=== PATIENT | female | born 1990 | race Caucasian/White ===

== ENCOUNTER 2023-02-23 14:41 | Emergency (ER) | payer OTHER, SELFPAY ==
[2023-02-23 14:47] VITALS: BP 166/96; PULSE 120; RESP 18; TEMP 37.1; O2SAT 98; BMI 32.3
[2023-02-23] MEDS: 0.9 % SODIUM CHLORIDE 1000 ml 1,000 ML IV (15:17)
[2023-02-23 15:22] LABS: Appearance Urine Clear (Clear); Bilirubin Urine Negative (Negative); Blood Urine Negative (Negative); Color Urine Yellow (Yellow); Glucose Urine Negative (Negative); Ketones Urine Negative (Negative); Leukocyte Esterase Urine Negative (Negative); Nitrite Urine Negative (Negative); Protein Urine Negative (Negative); Specific Gravity Urine 1.015 (1.000-1.030); Urobilinogen Urine 0.2 (0.2-1.0); pH Urine 8.5 (5.0-8.5)
[2023-02-23 15:26] LABS: Lactate Sepsis w/Reflex* 1.2 mmol/L (0.5-1.9)
[2023-02-23 15:29] LABS: Basophils Percent Auto 0.3 % (0.0-3.0); Eosinophils Percent Auto 0.7 % (0.0-7.0); Hemoglobin* 14.3 gm/dL (12.0-16.0); Immature Granulocytes Pct Auto 0.2 %; Mean Corpuscular HGB Conc 33 gm/dL (32-36); Mean Corpuscular Hemoglobin 30 pg (26-34); Mean Corpuscular Volume 91 fL (80-100); Monocytes Percent Auto 6.4 % (0.0-11.0); Neutrophils Percent Auto 69.4 % (42.0-72.0); Platelet Count* 339 K/uL (140-440); RDW Coefficient of Variation % 11.6 % (11.5-15.5); Red Blood Count 4.75 m/uL (4.00-5.20); White Blood Count* 13.01 K/uL (4.50-11.00)
[2023-02-23 15:29] LABS: Ur HCG Qualitative* Negative (Negative)
[2023-02-23 15:33] LABS: Slide Review Reflex No
[2023-02-23 15:43] LABS: Albumin* 4.7 g/dL (3.3-5.0); Chloride* 101 mmol/L (96-114); Sodium* 138 mmol/L (135-149)
--- NOTE | 2023-02-23 15:43 | ED.GENADULT ---
HPI - General Adult General Date Seen: 02/23/23 Chief complaint: Abdominal Pain Stated complaint: Abdominal pain Time Seen by Provider: 02/23/23 14:50 Source: patient Mode of arrival: ambulatory Limitations: no limitations History of Present Illness HPI narrative: Patient is a 32-year-old woman generally healthy who presents for evaluation of some left-sided abdominal pain which has been present for couple days. She says yesterday she had a fever up to 100.5 although that is now resolved. She says pain is in the left upper quadrant although radiates to the left lower quadrant. She has not had any associated nausea or vomiting, no diarrhea or constipation, no black or bloody stools, denies urinary symptoms. Pain is not pleuritic, no shortness of breath or chest pain. No cough or upper respiratory symptoms. Has a history of a remote abnormal Pap smear followed up with a normal colposcopy, no other gynecologic history. She got a couple weeks ago, they are trying to get but she had a period a couple of weeks ago and does not suspect that she is likely . She denies any vaginal discharge or unusual bleeding. She has no history of ovarian cyst or other ovarian pathology. No abdominal surgeries. General health otherwise normal, does not smoke or drink. Related Data Home Medications Medication Instructions Recorded Confirmed No Known Home Medications 02/23/23 02/23/23 Allergies Allergy/AdvReac Type Severity Reaction Status Date / Time No Known Drug Allergies Allergy Verified 02/23/23 14:50 Review of Systems Status of ROS: Reports: 10 or more systems reviewed and unremarkable except as noted in History and below PFSH [facility] Social History Smoking Status: Never smoker Do you use any of these nicotine containing products: None How often do you have a drink containing alcohol: monthly or less AUDIT-C Alcohol total score: 1 Exam Narrative: Exam Narrative: Vital signs as noted above. In general, an alert, well-appearing patient. Looks comfortable, ambulatory without difficulty. Head: Normocephalic, atraumatic. Eyes: Pupils are equal reactive. Extraocular movements are full. Conjunctivae are normal. ENT: Mucous membranes are moist. Throat is normal. Neck: Supple without lymphadenopathy. Heart: Regular rate and rhythm. No murmur or rub. Lungs: Clear bilaterally. No increased work of breathing, crackles or wheezes. Abdomen: Abdomen is soft, non distended, bowel sounds present. She has some tenderness in the extreme left upper quadrant underneath the ribcage, she does not have any rebound guarding or rigidity, does not have any lower abdominal tenderness at this time. No CVA tenderness. Extremities: Well perfused. No edema. No calf tenderness. Pulses intact. Neurologic: Patient is alert and oriented to person and place. Speech is fluent. Face is symmetric. Moves all extremities equally. Affect: Normal. Skin: Warm and dry. Well perfused. Const: Vital Signs, click to edit/add: Vital Signs - 24 hr 02/23/23 14:47 02/23/23 17:18 Temperature 98.7 F 98.4 F Pulse Rate [Right Pulse Oximeter] 120 H 105 H Respiratory Rate 18 18 Blood Pressure [Ri ght Upper Arm] 166/96 H 139/91 H Pulse Oximetry 98 98 Oxygen Delivery Me thod Room Air Room Air Documenting provider has reviewed patient's vital signs: yes Course Course ED Course: Following initial evaluation, an IV was placed, she was given a L of normal saline with improvement in her tachycardia. Blood pressure came down a little as well to 139/91. Her labs are notable for an elevated white blood cell count of 13, normal hemoglobin, no significant left shift. Metabolic panel unremarkable, LFTs normal. Her CRP was also elevated at 5, lipase 39, UA negative, test negative. Given the elevated white blood cell count and CRP I recommended CT scanning. CT scan by my review showed some inflammatory changes along the descending colon, radiology read is as follows:FINDINGS: Lower chest: Bibasilar discoid atelectasis with trace left pleural fluid. Small hiatal hernia. Liver: Diffusely decreased density of the liver without focal lesion. Gallbladder and bile ducts: Unremarkable. No stones or inflammation. No biliary dilatation. Spleen: Unremarkable. Normal in size without mass. Pancreas: Unremarkable. No mass or inflammation. Adrenal glands: Unremarkable. No nodules. Kidneys: Unremarkable. No masses, stones, or hydronephrosis. Vasculature: Unremarkable. GI tract: Small hiatal hernia. No dilated loops of large or small intestine. Normal appendix. Colonic diverticulosis with focal inflammation adjacent to a proximal descending colon diverticulum. Trace free fluid along the left colonic gutter. Pelvis: Moderate bladder distention. Right ovarian cyst measuring 2.3 centimeters. Bones: Unremarkable for age. IMPRESSION: 1. Acute diverticulitis proximal descending colon without evidence of abscess. 2. Small hiatal hernia. Patient feels well at this time, continues to deny significant pain. She has a trace amount of fluid on her CT but no evidence of perforation, suspect this is inflammatory but I am going to cover her with antibiotics. Discussed if she has worsening, develops high fevers worsening abdominal pain, vomiting chills etcetera she should come back to the emergency department. Otherwise I have asked her to follow-up in primary care in the next week or 2 for recheck. Ibuprofen or Tylenol as needed for pain. Vital Signs Vital signs: Initial Vital Signs Temperature 98.7 F 02/23/23 14:47 Temperature Source Temporal Artery Scan 02/23/23 14:47 Pulse Rate 120 H 02/23/23 14:47 Respiratory Rate 18 02/23/23 14:47 Blood Pressure 166/96 H 02/23/23 14:47 Blood Pressure Mean 119 H 02/23/23 14:47 Blood Pressure Position Sitting 02/23/23 14:47 Pulse Oximetry 98 02/23/23 14:47 Oxygen Delivery Method Room Air 02/23/23 14:47 Vital Signs Temperature 98.7 F 02/23/23 14:47 Pulse Rate 120 H 02/23/23 14:47 Respiratory Rate 18 02/23/23 14:47 Blood Pressure 166/96 H 02/23/23 14:47 Pulse Oximetry 98 02/23/23 14:47 Oxygen Delivery Method Room Air 02/23/23 14:47 Temperature 98.4 F 02/23/23 17:18 Pulse Rate 105 H 02/23/23 17:18 Respiratory Rate 18 02/23/23 17:18 Blood Pressure 139/91 H 02/23/23 17:18 Pulse Oximetry 98 02/23/23 17:18 Oxygen Delivery Method Room Air 02/23/23 17:18 Medical Decision Making Lab Data Labs: Lab Results 02/23/23 02/23/23 02/23/23 Range/Units 14:55 15:16 15:16 WBC 13.01 H (4.50-11.00) K/uL RBC 4.75 (4.00-5.20) m/uL Hgb 14.3 (12.0-16.0) gm/dL Hct 43.0 (33.0-51.0) % MCV 91 (80-100) fL MCH 30 (26-34) pg MCHC 33 (32-36) gm/dL RDW Coeff of Demario 11.6 (11.5-15.5) % Plt Count 339 (140-440) K/uL Neut % (Auto) 69.4 (42.0-72.0) % Lymph % (Auto) 23.0 (20-44) % Parmer % (Auto) 6.4 (0.0-11.0) % Eos % (Auto) 0.7 (0.0-7.0) % Baso % (Auto) 0.3 (0.0-3.0) % Neut # (Auto) 9.00 H (1.7-7.0) K/uL Lymph # (Auto) 3.00 H (0.90-2.90) K/uL Parmer # (Auto) 0.80 (0.00-0.90) K/UL Eos # (Auto) 0.10 (0.00-0.50) K/uL Baso # (Auto) 0.00 (0.00-0.30) K/uL Abs Immat Gran (auto) 0.00 (0.00-0.30) K/uL Imm/Tot Granulo (auto) 0.2 % Sodium Cancelled 138 Potassium Cancelled Chloride Carbon Dioxide Anion Gap BUN Creatinine Estimated Creat Clear Estimated GFR Glucose Lactate (0.5-1.9) mmol/L Calcium Total Bilirubin (0.1-1.5) mg/dL Direct Bilirubin (0.0-0.5) mg/dL AST (12-35) U/L ALT (4-35) U/L Alkaline Phosphatase (40-150) U/L C-Reactive Protein Total Protein (6.0-8.3) g/dL Albumin (3.3-5.0) g/dL Lipase (23-300) U/L Urine Color Yellow (Yellow) Urine Appearance Clear (Clear) Urine pH 8.5 (5.0-8.5) Ur Specific Riparius 1.015 (1.000-1.030) Urine Protein Negative (Negative) Urine Glucose (UA) Negative (Negative) Urine Ketones Negative (Negative) Urine Blood Negative (Negative) Urine Nitrite Negative (Negative) Urine Bilirubin Negative (Negative) Urine Urobilinogen 0.2 (0.2-1.0) Ur Leukocyte Esterase Negative (Negative) Urine RBC 0-2 (0-2) Urine WBC 0-2 (0-5) Ur Squamous Epith Cells None (None-Few) Urine Bacteria Few A (None) Urine HCG, Qual Negative (Negative) 02/23/23 02/23/23 02/23/23 Range/Units 15:16 15:16 15:16 WBC (4.50-11.00) K/uL RBC (4.00-5.20) m/uL Hgb (12.0-16.0) gm/dL Hct (33.0-51.0) % MCV (80-100) fL MCH (26-34) pg MCHC (32-36) gm/dL RDW Coeff of Demario (11.5-15.5) % Plt Count (140-440) K/uL Neut % (Auto) (42.0-72.0) % Lymph % (Auto) (20-44) % Parmer % (Auto) (0.0-11.0) % Eos % (Auto) (0.0-7.0) % Baso % (Auto) (0.0-3.0) % Neut # (Auto) (1.7-7.0) K/uL Lymph # (Auto) (0.90-2.90) K/uL Parmer # (Auto) (0.00-0.90) K/UL Eos # (Auto) (0.00-0.50) K/uL Baso # (Auto) (0.00-0.30) K/uL Abs Immat Gran (auto) (0.00-0.30) K/uL Imm/Tot Granulo (auto) % Sodium Potassium 3.4 L Chloride Cancelled 101 Carbon Dioxide Cancelled 27 Anion Gap Cancelled BUN Creatinine Estimated Creat Clear Estimated GFR Glucose Lactate (0.5-1.9) mmol/L Calcium Total Bilirubin (0.1-1.5) mg/dL Direct Bilirubin (0.0-0.5) mg/dL AST (12-35) U/L ALT (4-35) U/L Alkaline Phosphatase (40-150) U/L C-Reactive Protein Total Protein (6.0-8.3) g/dL Albumin (3.3-5.0) g/dL Lipase (23-300) U/L Urine Color (Yellow) Urine Appearance (Clear) Urine pH (5.0-8.5) Ur Specific Riparius (1.000-1.030) Urine Protein (Negative) Urine Glucose (UA) (Negative) Urine Ketones (Negative) Urine Blood (Negative) Urine Nitrite (Negative) Urine Bilirubin (Negative) Urine Urobilinogen (0.2-1.0) Ur Leukocyte Esterase (Negative) Urine RBC (0-2) Urine WBC (0-5) Ur Squamous Epith Cells (None-Few) Urine Bacteria (None) Urine HCG, Qual (Negative) 02/23/23 02/23/23 02/23/23 Range/Units 15:16 15:16 15:16 WBC (4.50-11.00) K/uL RBC (4.00-5.20) m/uL Hgb (12.0-16.0) gm/dL Hct (33.0-51.0) % MCV (80-100) fL MCH (26-34) pg MCHC (32-36) gm/dL RDW Coeff of Demario (11.5-15.5) % Plt Count (140-440) K/uL Neut % (Auto) (42.0-72.0) % Lymph % (Auto) (20-44) % Parmer % (Auto) (0.0-11.0) % Eos % (Auto) (0.0-7.0) % Baso % (Auto) (0.0-3.0) % Neut # (Auto) (1.7-7.0) K/uL Lymph # (Auto) (0.90-2.90) K/uL Parmer # (Auto) (0.00-0.90) K/UL Eos # (Auto) (0.00-0.50) K/uL Baso # (Auto) (0.00-0.30) K/uL Abs Immat Gran (auto) (0.00-0.30) K/uL Imm/Tot Granulo (auto) % Sodium Potassium Chloride Carbon Dioxide Anion Gap 10 BUN Cancelled 5 Creatinine Cancelled 0.5 Estimated Creat Clear Cancelled Estimated GFR Glucose Lactate (0.5-1.9) mmol/L Calcium Total Bilirubin (0.1-1.5) mg/dL Direct Bilirubin (0.0-0.5) mg/dL AST (12-35) U/L ALT (4-35) U/L Alkaline Phosphatase (40-150) U/L C-Reactive Protein Total Protein (6.0-8.3) g/dL Albumin (3.3-5.0) g/dL Lipase (23-300) U/L Urine Color (Yellow) Urine Appearance (Clear) Urine pH (5.0-8.5) Ur Specific Riparius (1.000-1.030) Urine Protein (Negative) Urine Glucose (UA) (Negative) Urine Ketones (Negative) Urine Blood (Negative) Urine Nitrite (Negative) Urine Bilirubin (Negative) Urine Urobilinogen (0.2-1.0) Ur Leukocyte Esterase (Negative) Urine RBC (0-2) Urine WBC (0-5) Ur Squamous Epith Cells (None-Few) Urine Bacteria (None) Urine HCG, Qual (Negative) 02/23/23 02/23/23 02/23/23 Range/Units 15:16 15:16 15:16 WBC (4.50-11.00) K/uL RBC (4.00-5.20) m/uL Hgb (12.0-16.0) gm/dL Hct (33.0-51.0) % MCV (80-100) fL MCH (26-34) pg MCHC (32-36) gm/dL RDW Coeff of Demario (11.5-15.5) % Plt Count (140-440) K/uL Neut % (Auto) (42.0-72.0) % Lymph % (Auto) (20-44) % Parmer % (Auto) (0.0-11.0) % Eos % (Auto) (0.0-7.0) % Baso % (Auto) (0.0-3.0) % Neut # (Auto) (1.7-7.0) K/uL Lymph # (Auto) (0.90-2.90) K/uL Parmer # (Auto) (0.00-0.90) K/UL Eos # (Auto) (0.00-0.50) K/uL Baso # (Auto) (0.00-0.30) K/uL Abs Immat Gran (auto) (0.00-0.30) K/uL Imm/Tot Granulo (auto) % Sodium Potassium Chloride Carbon Dioxide Anion Gap BUN Creatinine Estimated Creat Clear 148.41 Estimated GFR Cancelled 126 Glucose Cancelled 111 Lactate 1.2 (0.5-1.9) mmol/L Calcium Cancelled Total Bilirubin (0.1-1.5) mg/dL Direct Bilirubin (0.0-0.5) mg/dL AST (12-35) U/L ALT (4-35) U/L Alkaline Phosphatase (40-150) U/L C-Reactive Protein Total Protein (6.0-8.3) g/dL Albumin (3.3-5.0) g/dL Lipase (23-300) U/L Urine Color (Yellow) Urine Appearance (Clear) Urine pH (5.0-8.5) Ur Specific Riparius (1.000-1.030) Urine Protein (Negative) Urine Glucose (UA) (Negative) Urine Ketones (Negative) Urine Blood (Negative) Urine Nitrite (Negative) Urine Bilirubin (Negative) Urine Urobilinogen (0.2-1.0) Ur Leukocyte Esterase (Negative) Urine RBC (0-2) Urine WBC (0-5) Ur Squamous Epith Cells (None-Few) Urine Bacteria (None) Urine HCG, Qual (Negative) 02/23/23 02/23/23 Range/Units 15:16 15:16 WBC (4.50-11.00) K/uL RBC (4.00-5.20) m/uL Hgb (12.0-16.0) gm/dL Hct (33.0-51.0) % MCV (80-100) fL MCH (26-34) pg MCHC (32-36) gm/dL RDW Coeff of Demario (11.5-15.5) % Plt Count (140-440) K/uL Neut % (Auto) (42.0-72.0) % Lymph % (Auto) (20-44) % Parmer % (Auto) (0.0-11.0) % Eos % (Auto) (0.0-7.0) % Baso % (Auto) (0.0-3.0) % Neut # (Auto) (1.7-7.0) K/uL Lymph # (Auto) (0.90-2.90) K/uL Parmer # (Auto) (0.00-0.90) K/UL Eos # (Auto) (0.00-0.50) K/uL Baso # (Auto) (0.00-0.30) K/uL Abs Immat Gran (auto) (0.00-0.30) K/uL Imm/Tot Granulo (auto) % Sodium Potassium Chloride Carbon Dioxide Anion Gap BUN Creatinine Estimated Creat Clear Estimated GFR Glucose Lactate (0.5-1.9) mmol/L Calcium 8.8 Total Bilirubin 0.7 (0.1-1.5) mg/dL Direct Bilirubin 0.0 (0.0-0.5) mg/dL AST 35 (12-35) U/L ALT 34 (4-35) U/L Alkaline Phosphatase 80 (40-150) U/L C-Reactive Protein Cancelled 5.0 H Total Protein 8.1 (6.0-8.3) g/dL Albumin 4.7 (3.3-5.0) g/dL Lipase 39 (23-300) U/L Urine Color (Yellow) Urine Appearance (Clear) Urine pH (5.0-8.5) Ur Specific Riparius (1.000-1.030) Urine Protein (Negative) Urine Glucose (UA) (Negative) Urine Ketones (Negative) Urine Blood (Negative) Urine Nitrite (Negative) Urine Bilirubin (Negative) Urine Urobilinogen (0.2-1.0) Ur Leukocyte Esterase (Negative) Urine RBC (0-2) Urine WBC (0-5) Ur Squamous Epith Cells (None-Few) Urine Bacteria (None) Urine HCG, Qual (Negative) Discharge Plan Discharge Clinical Impression: Diverticulitis Patient Disposition: Home, Self-Care Condition: Improved Instructions: Diverticulitis (DC) Additional Instructions: Antibiotics as prescribed. Ibuprofen and/or Tylenol as needed. For worsening pain, new symptoms such as fever, chills, vomiting, bloody stools or other significant changes return to the emergency department at any time. Otherwise please follow-up with primary care in the next 1-2 weeks for recheck. Prescriptions: No Action No Known Home Medications Follow Up/Referrals: Provider,Not a Local [Primary Care Provider] - Stand Alone Forms: [facility] Info Instructions
[2023-02-23 15:44] LABS: Potassium* 3.4 mmol/L (3.6-5.1)
[2023-02-23 15:46] LABS: Creatinine* 0.5 mg/dL (0.5-1.5); Est. Creatinine Clearance* 148.41; Estimated Glomerular Filt Rate 126 ml/min
[2023-02-23 15:47] LABS: RBC Urine 0-2 (0-2); WBC Urine 0-2 (0-5)
[2023-02-23 15:47] LABS: Alanine Aminotransferase* 34 U/L (4-35); Alkaline Phosphatase* 80 U/L (40-150); Anion Gap 10 mEq/L (7-15); Aspartate Amino Transferase* 35 U/L (12-35); Bilirubin Total* 0.7 mg/dL (0.1-1.5); Blood Urea Nitrogen* 5 mg/dL (5-24); Calcium* 8.8 mg/dL (8.4-10.6); Carbon Dioxide* 27 mmol/L (20-32); Glucose* 111 mg/dL (60-115); Lipase* 39 U/L (23-300); Total Protein* 8.1 g/dL (6.0-8.3)
[2023-02-23 15:48] LABS: Bacteria Urine Few
--- NOTE | 2023-02-23 16:25 | CRLHL7_ITS ---
For Patients: As a result of the Century Cures Act, medical imaging exams and procedure reports are released immediately into your electronic medical record. You may view this report before your referring provider. If you have questions, please contact your health care provider. INDICATION: Left abdominal pain and fever TECHNIQUE: Axial images were obtained from the diaphragm to the pubic symphysis. Reformats were obtained in the coronal and sagittal plane. IV Contrast: 100 cc Isovue 370 Oral Contrast: None COMPARISON: None. FINDINGS: Lower chest: Bibasilar discoid atelectasis with trace left pleural fluid. Small hiatal hernia. Liver: Diffusely decreased density of the liver without focal lesion. Gallbladder and bile ducts: Unremarkable. No stones or inflammation. No biliary dilatation. Spleen: Unremarkable. Normal in size without mass. Pancreas: Unremarkable. No mass or inflammation. Adrenal glands: Unremarkable. No nodules. Kidneys: Unremarkable. No masses, stones, or hydronephrosis. Vasculature: Unremarkable. GI tract: Small hiatal hernia. No dilated loops of large or small intestine. Normal appendix. Colonic diverticulosis with focal inflammation adjacent to a proximal descending colon diverticulum. Trace free fluid along the left colonic gutter. Pelvis: Moderate bladder distention. Right ovarian cyst measuring 2.3 centimeters. Bones: Unremarkable for age. IMPRESSION: 1. Acute diverticulitis proximal descending colon without evidence of abscess. 2. Small hiatal hernia. Please note that all CT scans at this facility use dose modulation, iterative reconstruction, and/or weight-based dosing when appropriate to reduce radiation dose to as low as reasonably achievable. Dictated by Byron Fields MD @ 02/23/2023 5:04:13 PM (Electronically Signed)
[2023-02-23 17:18] VITALS: BP 139/91; PULSE 105; RESP 18; TEMP 36.9; O2SAT 98
== END 2023-02-23 17:26 | disposition home or self-care (01) ==
PROVIDERS: Emergency Provider Emergency Medicine
DX: K57.92 Diverticulitis of intestine, part unspecified, without perforation or abscess without bleeding (principal)
CPT/HCPCS: 36415; 74177; 80048; 80076; 81001; 81025; 83605; 83690; 85025; 86140; 87086; 99283; 99284; J7030; Q9967

== ENCOUNTER 2024-03-23 16:13 | Outpatient (CLI) | payer OTHER, SELFPAY | END 2024-03-23 16:14 | disposition home or self-care (01) | LOC: NFLDREF 03-27 13:47 | PROVIDERS: Visit Provider Obstetrics & Gynecology | DX: Z31.9 Encounter for procreative management, unspecified (principal) | CPT/HCPCS: 82670; 83001; 83002; 84146; 84443 ==

== ENCOUNTER 2024-04-24 08:50 | Outpatient (CLI) | payer OTHER, SELFPAY ==
--- NOTE | 2024-04-24 09:15 | CRLHL7_ITS ---
For Patients: As a result of the Century Cures Act, medical imaging exams and procedure reports are released immediately into your electronic medical record. You may view this report before your referring provider. If you have questions, please contact your health care provider. Indication: Infertility Technique: Routine history of sonogram performed. Fluoroscopic time is 0.23 minutes. IMPRESSION: Normal endometrial canal without filling defect. Normal spillage of contrast into the peritoneal cavity through the patent fallopian tubes. Normal study. Dictated by Marco A Jain MD @ 04/24/2024 10:53:18 AM (Electronically Signed)
--- NOTE | 2024-04-24 09:48 | W.PM.GYNPROC ---
Procedure Note Time Seen by Provider: 09:48 Date of procedure: 04/24/24 Will [facility] bill your pro fee for this procedure?: Yes Procedure Description: DATE: 04/24/24 PREPROCEDURE DIAGNOSIS: Infertility POSTPROCEDURE DIAGNOSIS: 1. Infertility 2. Patent fallopian tubes bilaterally. NAME OF PROCEDURE: Hysterosalpingogram. ANESTHESIA: None. COMPLICATIONS: None. PROCEDURE: After obtaining verbal consent, the patient was placed in the dorsal lithotomy position on the x-ray table. An open-sided bivalve speculum was introduced into the vagina and the cervix easily visualized. The cervix and vagina were then prepped with Betadine. The anterior lip of the cervix was grasped with a single-tooth tenaculum for traction. Os binder/cervical dilator used: No. A balloon tipped double-lumen catheter was then gently inserted through the cervical opening into the uterine cavity to the level of the fundus. The balloon was insufflated with 3 mL of air. The tenaculum and speculum were removed. The patient was repositioned in the supine position, covered, and the radiologist was called to the room. A hysterosalpingogram was then performed. A total of 20 cc of Optiray 300 water soluble contrast dye was injected through the double-lumen catheter under moderate pressure. There was immediate fill of the uterine cavity to the cornua and immediate fill of both fallopian tubes and free spillage of dye on both sides The balloon was deflated. The catheter was removed. The patient tolerated the procedure well, though she did have moderate cramping discomfort during and just after the procedure. We discussed starting and alcohol cessation which she has been doing for the last two months. Additionally, her partner will need to submit a semen analysis. She was discharged to home in stable condition and make an appointment with her physician to review all of her lab results and procedure results.
== END 2024-04-24 08:51 | disposition home or self-care (01) ==
LOC: RAD 08:51
PROVIDERS: Visit Provider Obstetrics & Gynecology
DX: N97.9 Female infertility, unspecified (principal); Z31.9 Encounter for procreative management, unspecified
CPT/HCPCS: 58340; 74740; A4649; Q9967

== ENCOUNTER 2024-06-26 16:20 | Outpatient (CLI) | payer OTHER, SELFPAY | END 2024-06-26 16:21 | disposition home or self-care (01) | LOC: NFLDREF 07-02 09:28 | PROVIDERS: Visit Provider Obstetrics & Gynecology | DX: Z31.9 Encounter for procreative management, unspecified (principal) | CPT/HCPCS: 84144 ==

== ENCOUNTER 2024-08-04 07:05 | Outpatient (CLI) | payer OTHER, SELFPAY ==
--- NOTE | 2024-08-04 07:15 | CRLHL7_ITS ---
For Patients: As a result of the Century Cures Act, medical imaging exams and procedure reports are released immediately into your electronic medical record. You may view this report before your referring provider. If you have questions, please contact your health care provider. INDICATION: Check viability and dates TECHNIQUE: Transvaginal scanning was performed to better evaluate the IUP and adnexa. Ovarian blood flow was evaluated with color-flow doppler. COMPARISON: None FINDINGS: There is a living IUP with gestational age of 8 weeks 5 days by LMP and 8 weeks 2 days by today`s crown-rump length. EDC based on today`s crown-rump length is 03/14/2025. The embryonic heart rate is measured at 196 beats per minute. The placenta is not yet formed. A 1.5 x 1.0 x 0.8 cm subchorionic hemorrhage is noted. The ovaries are normal in size and shape. The right ovary measures 3.0 x 1.7 x 1.6 cm and the left 3.4 x 2.1 x 2.1 cm. Ovarian blood flow is demonstrated with color-flow and pulsed Doppler. No adnexal mass or free fluid is apparent. IMPRESSION: 1. Living IUP with gestational age of 8 weeks 2 days by today`s crown-rump length an EDC of 03/14/2025. 2. 1.5 x 1.0 x 0.8 cm subchorionic hemorrhage. Dictated by Medardo Connelly MD @ 08/05/2024 11:33:17 AM (Electronically Signed)
== END 2024-08-04 07:06 | disposition home or self-care (01) ==
LOC: US 07:06
PROVIDERS: Visit Provider Advanced Practice Midwife
DX: Z34.91 Encounter for supervision of normal pregnancy, unspecified, first trimester (principal); O20.9 Hemorrhage in early pregnancy, unspecified; Z3A.08 8 weeks gestation of pregnancy
CPT/HCPCS: 76817; 82565; 82570; 83021; 84156; 84450; 84460; 84520; 86592; 86703; 86704; 86706; 86762; 86787; 86803; 86850; 86900; 86901; 87086; 87340; 87491; 87591; 87624; 88142

== ENCOUNTER 2024-09-01 11:06 | Outpatient (CLI) | payer OTHER, SELFPAY | END 2024-09-01 11:07 | disposition home or self-care (01) | PROVIDERS: Visit Provider Advanced Practice Midwife | DX: Z34.01 Encounter for supervision of normal first pregnancy, first trimester (principal) | CPT/HCPCS: 82570; 84156 ==

== ENCOUNTER 2024-12-20 08:33 | Outpatient (CLI) | payer OTHER, SELFPAY | END 2024-12-20 08:34 | disposition home or self-care (01) | LOC: NFLDREF 12-24 14:39 | PROVIDERS: Visit Provider Advanced Practice Midwife | DX: O09.523 Supervision of elderly multigravida, third trimester (principal); Z3A.28 28 weeks gestation of pregnancy | CPT/HCPCS: 86592 ==

== ENCOUNTER 2025-01-03 11:33 | Outpatient (CLI) | payer OTHER, SELFPAY | END 2025-01-03 11:34 | disposition home or self-care (01) | PROVIDERS: Visit Provider Midwife | DX: O09.93 Supervision of high risk pregnancy, unspecified, third trimester (principal); O09.513 Supervision of elderly primigravida, third trimester; R03.0 Elevated blood-pressure reading, without diagnosis of hypertension; Z3A.30 30 weeks gestation of pregnancy | CPT/HCPCS: 82565; 82570; 84156; 84450; 84460; 84520; 84550; 87086 ==

== ENCOUNTER 2025-01-10 12:57 | Outpatient (CLI) | payer OTHER, SELFPAY | END 2025-01-10 12:58 | disposition home or self-care (01) | PROVIDERS: Visit Provider Advanced Practice Midwife | DX: O09.513 Supervision of elderly primigravida, third trimester (principal); O13.3 Gestational [pregnancy-induced] hypertension without significant proteinuria, third trimester; O09.93 Supervision of high risk pregnancy, unspecified, third trimester; Z3A.31 31 weeks gestation of pregnancy | CPT/HCPCS: 82565; 82570; 84156; 84450; 84460 ==

== ENCOUNTER 2025-01-19 07:15 | Outpatient (CLI) | payer OTHER, SELFPAY ==
--- NOTE | 2025-01-19 07:15 | CRLHL7_ITS ---
For Patients: As a result of the Century Cures Act, medical imaging exams and procedure reports are released immediately into your electronic medical record. You may view this report before your referring provider. If you have questions, please contact your health care provider. OB ULTRASOUND BIOPHYSICAL PROFILE, 01/19/2025 CLINICAL HISTORY: GHTN. COMPARISON: [facility] 12/13/2024, [facility] 11/15/2024, [facility] 10/24/2024. TECHNIQUE: Real time gaviria scale imaging of the fetus was performed. Transabdominal imaging performed. FINDINGS: LMP: 06/04/2024. KRISTINA by LMP: 03/11/2025. GA: 32 weeks 5 days. Gestation: Single. Cervix: Not visualized. Positioning: Vertex. Amniotic Fluid: 3.1 cm SDP. BIOPHYSICAL PROFILE Gross Body Movements: 2 Tone: 2 Respiratory Activity: 2 Amniotic Fluid SDP: 2 Total Score: 8 Placenta: TA. Placenta Position: Fundal, posterior. Dopplers: Heart Rate: 138 bpm. BIOMETRY BPD: ; 8.1 cm, 32 weeks 3 days. 34.8% HC: 30.6 cm, 34 weeks 0 days. 46.7% AC: 28.2 cm, 32 weeks 2 days. 36.3% FL: 6.1 cm, 31 weeks 4 days. 12.9% FL/AC Ratio: 21.6% HC/AC Ratio: 1.1. EFW: 1934 grams, 4 lb 4 oz. Age by tis US: 32 weeks 4 days. KRISTINA by this US: 03/12/2025. Percentile by KRISTINA: 26.4% IMPRESSION: 1. Normal biophysical profile score of 8/8. 2. Sonographic gestational age 32 weeks 4 days and sonographic due date 03/12/2025. Good correlation with dates. Normal interval growth. 3. Estimated weight 26th percentile. Abdominal circumference 36th percentile. Marco A Jain M.D. Diagnostic Radiologist [email or web address] Transcribed: 2:37 pm DW/Dictated by: Marco A Jain MD @ 01/19/2025 1:53:00 PM (Electronically Signed)
== END 2025-01-19 07:16 | disposition home or self-care (01) ==
LOC: US 07:15
PROVIDERS: Visit Provider Advanced Practice Midwife
DX: O13.3 Gestational [pregnancy-induced] hypertension without significant proteinuria, third trimester (principal); Z3A.32 32 weeks gestation of pregnancy
CPT/HCPCS: 76816; 76819

== ENCOUNTER 2025-01-19 08:05 | Outpatient (CLI) | payer OTHER, SELFPAY | END 2025-01-19 08:06 | disposition home or self-care (01) | LOC: NFLDREF 01-23 08:40 | PROVIDERS: Visit Provider Advanced Practice Midwife | DX: O13.9 Gestational [pregnancy-induced] hypertension without significant proteinuria, unspecified trimester (principal); Z3A.32 32 weeks gestation of pregnancy | CPT/HCPCS: 82565; 82570; 84156; 84450; 84460; 84520 ==

== ENCOUNTER 2025-02-02 13:37 | Outpatient (CLI) | payer OTHER, SELFPAY | END 2025-02-02 13:38 | disposition home or self-care (01) | LOC: NFLDREF 02-05 08:57 | PROVIDERS: Visit Provider Advanced Practice Midwife | DX: O10.913 Unspecified pre-existing hypertension complicating pregnancy, third trimester (principal); O09.523 Supervision of elderly multigravida, third trimester; Z3A.34 34 weeks gestation of pregnancy | CPT/HCPCS: 82565; 82570; 84156; 84450; 84460; 84520 ==

== ENCOUNTER 2025-02-09 15:21 | Outpatient (CLI) | payer OTHER, SELFPAY ==
[2025-02-10 14:53] LABS: Strep B DNA Probe Negative (Negative)
[2025-02-10 20:56] LABS: Strep B Susceptibility Needed? No
== END 2025-02-09 15:22 | disposition home or self-care (01) ==
LOC: NFLDREF 15:21
PROVIDERS: Visit Provider Advanced Practice Midwife
DX: O09.523 Supervision of elderly multigravida, third trimester (principal); Z3A.35 35 weeks gestation of pregnancy
CPT/HCPCS: 87081; 87653

== ENCOUNTER 2025-02-16 13:50 | Outpatient (CLI) | payer OTHER, SELFPAY | END 2025-02-16 13:51 | disposition home or self-care (01) | LOC: NFLDREF 02-19 18:32 | PROVIDERS: Visit Provider Advanced Practice Midwife | DX: O10.913 Unspecified pre-existing hypertension complicating pregnancy, third trimester (principal); O09.523 Supervision of elderly multigravida, third trimester; Z3A.36 36 weeks gestation of pregnancy | CPT/HCPCS: 82565; 82570; 84156; 84450; 84460; 84520 ==

== ENCOUNTER 2025-02-16 13:55 | Outpatient (CLI) | payer OTHER, SELFPAY ==
--- NOTE | 2025-02-16 14:00 | CRLHL7_ITS ---
For Patients: As a result of the Century Cures Act, medical imaging exams and procedure reports are released immediately into your electronic medical record. You may view this report before your referring provider. If you have questions, please contact your health care provider. OB ULTRASOUND BIOPHYSICAL PROFILE AND GROWTH, TRANSABDOMINAL LMP: 06/04/2024. KRISTINA by LMP: 03/11/2025. GA: 36 w, 5 d. Single. Comparison: 01/19/2025 BPP and growth. INDICATION: Chronic hypertension. TECHNIQUE: Real time gaviria scale imaging of the fetus was performed. Transabdominal imaging performed. CERVIX: Not visualized. POSITIONING: Vertex. AMNIOTIC FLUID: 4.5 cm SDP (N: greater than 2 x 1 cm) BIOPHYSICAL PROFILE: Gross body movements: 2. tone: 2. Respiratory activity: 2. Amniotic fluid: 2. SDP (N: greater than 2 x 1 cm). Total score: 8. PLACENTA: Technique: Transabdominal. PLACENTA POSITION: Fundal, posterior. DOPPLER: heart rate: 147 bpm. BIOMETRY: BPD: 8.96 cm. 36 w, 2 d, 50.8 percent. HC: 33.06 cm. 37 w, 5 d, 45.1 percent. AC: 32.43 cm. 36 w, 2 d, 52.1 percent. FL: 6.90 cm. 35 w, 3 d, 17.2 percent. FL/AC ratio: 21.28 percent. HC/AC ratio: 1.02. EFW: 2886 g. Weight: 6 lbs, 6 oz. age by this US: 36 w, 3 d. KRISTINA by this US: 03/13/2025. Percentile by KRISTINA: 41.5 percent. IMPRESSION: 1. Sonographic gestational age 36 weeks 3 days and sonographic due date 03/13/2025. Could correlate with dates. Normal interval growth. 2. Estimated weight 42nd percentile. Abdominal circumference 52nd percentile. 3. Normal biophysical profile 12/15. Marco A Jain M.D. Diagnostic Radiologist [email or web address] SP/Dictated by: Marco A Jain MD @ 02/16/2025 4:37:00 PM (Electronically Signed)
== END 2025-02-16 13:56 | disposition home or self-care (01) ==
LOC: US 13:56
PROVIDERS: Visit Provider Advanced Practice Midwife
DX: O10.913 Unspecified pre-existing hypertension complicating pregnancy, third trimester (principal); Z3A.36 36 weeks gestation of pregnancy
CPT/HCPCS: 76816; 76819

== ENCOUNTER 2025-03-04 16:02 | Inpatient (IN) | payer OTHER, SELFPAY ==
[2025-03-04] VITALS (8 sets, daily range): BP systolic 100–128; BP diastolic 57–88; PULSE 71–125; RESP 16; TEMP 36.4; O2SAT 98; BMI 34.9
--- NOTE | 2025-03-04 17:19 | W.PM.LDBA ---
Subjective History of Present Illness Date Seen: 03/04/25 Narrative: Jessee is being admitted to Labor and Delivery for a medical IOL for chronic hypertension and AMA. She is a 34 year old at 39.0 weeks gestation. Her full history and physical was dictated by Lewis Tyler CNM on 02/16/25. Please see this for details. we reviewed option for IOL including cook catheter, Cytotec, Cervidil, and Pitocin. Reviewed that a Cook placement would be difficult and may nt be able to place given her dilation and cervical position. She has had some contractions over the past week but nothing regular and none today. Reviewed risks and benefits of Cytotec and Cervidil. She would like to proceed with PO Cytotec at this time. Vertex presentation confirmed by bedside ultrasound. Specific Issues/Plans : Curtis Yoder is a girl! H&P 02/16/25 by Lewis Tyler CNM # Chronic HTN Suspected chronic hypertension. Asked OB to review chart with group for diagnosis clarification 01/10/25. They recommend Chronic HTN as dx History of elevated BP without diagnosis hypertension, prior to (01/2024) AND 01/03/25; (BP from 12/20/24 assumed erroneous) No work-up for HTN, Normal BP at [facility] Preeclampsia labs collected (08/04/24) WNL, p/c rato 0.21; 24 hour urine 448 08/2024 p/c ratio 0.3, on 24h urine 01/03/2025 p/c ratio .86, AST37, otherwise normal. 01/10/25 p/c ratio 0.30 p/c ratio 0.04, others all WNL Consult Nephrology appt - completed Home BP monitoring STAT Weekly Labs, pt prefers to continue every other week labs with dx change Twice weekly testing-scheduled- changed to every other week with dx change (GHTN vs CHTN), scheduled Growth Q 3wks. 32wks: 26% Delivery recommended at 38 0/7-39 6/7weeks? [place]: 01/19/2025 # Advanced maternal age Level II 20wk anatomy scan-completed 10/24/24, normal findings but a couple of views suboptimal. Repeat in 3w scheduled. Recommend genetic screening: NIPT low risk female, carrier screen negative Imagin08/05/2024 Living IUP with gestational age of 8 weeks 2 days by today`s crown-rump length an EDC of 03/14/2025. 2. 1.5 x 1.0 x 0.8 cm subchorionic hemorrhage. 10/25/24 [place] at 20w2d gestation. No anomalies detected however some views suboptimal. Growth parameters and EFW consistent with gestational age. Amniotic fluid appears normal. Cervix long and closed. 11/22/24 [place] at 23w 3 d gestation. The remaining anatomic survey completed and no anomalies were identified. Growth parameters and EFW were appropriate for gestational age. EFW 17%. Adequate interval growth albeit at the lower end of normal. The amniotic fluid appeared normal. 12/13/24: [place] at 28w 3d gestation. Normal anatomy. Growth appropriate EFW 29%. Amniotic fluid normal. Recommend growth ultrasounds every 4 weeks based on previous ultrasound. 01/19/25: Normal biophysical profile score of 8/8. Sonographic gestational age 32 weeks 4 days and sonographic due date 03/12/2025. Good correlation with dates. Normal interval growth. Estimated weight 26th percentile. Abdominal circumference 36th percentile. Last PAP: 08/04/24 NIL, HPV- (waiting on records--only ones received from [facility] was for 05/29/2015-NILM) Flu: declined 02/16/2025 Covid: declined 02/16/2025 TDAP:01/10/25 RSV: 01/26/25 OB - Problem Based A/P Additional Plan (1) Encounter for induction of labor: Status: Acute (2) Chronic hypertension affecting : Status: Acute (3) Supervision of high-risk : Status: Acute (4) AMA (advanced maternal age) primigravida 35+: Status: Acute Plan ASSESSMENT:? at 39.0 weeks gestation? GBS negative? ?complicated by: chronic hypertension, AMA Labor type: Medical IOL? Category 1 tracing Blood type:?O+ ?? PLAN:? 1. Reviewed risks and benefits of IOL with Pitocin vs cervical ripening, will proceed with ripening. Reviewed risks and benefits of Cytotec vs Cook vs Cervidil. Pt prefers PO Cytotec. Pitocin to follow if needed.? 2. Candidate for analgesia of choice. Planning epidural.? 3. Monitor blood pressures per policy. Consider labs with elevated readings.? 4. Anticipate ? 5. Patient encouraged to reposition and ambulate to promote physiologic labor and . 6. Monitoring per policy. Delivery/Labor/Induction Plan Plan: induction Induction method: per misoprostol protocol OB Result Labs Blood Type: O (+) positive Rubella: immune RPR/VDLR: nonreactive GBS Status: negative HBsAG: negative OB Exam Physical Exam Vital signs: Pulse BP Pulse Ox 125 H 128/88 98 03/04/25 16:18 03/04/25 16:18 03/04/25 16:19 Narrative: Psychiatric:? Alert and oriented x3? HEENT:? Normocephalic, atraumatic? Neck:? Supple without adenopathy or thyromegaly? Lungs:? Clear to auscultation bilaterally? Heart:? Regular rate and rhythm, no murmur, rub or gallop? Abdomen:? Soft, nontender, and gravid? Extremities:? No edema or erythema? Detailed Labor and Delivery Exam Patient Gravid: yes Dilation (cm): 0 (0.5cm) Cervix position: posterior Consistency: medium Contraction Frequency: rare, pt denies feeling them Tachysystole: No Fetus (Single) Amniotic Membrane Status: intact Amniotic Membrane Fluid Description: Clear Heart Rate Baseline: 135 Monitor Accelerations: Present Monitor Decelerations: None Fci Variability: Moderate (6-25) (short periods of marked variably on initial tracing)
[2025-03-04 18:46] LABS: Hematocrit* 37.8 % (33.0-51.0); Hemoglobin* 12.8 gm/dL (12.0-16.0); Immature Granulocytes Pct Auto 0.3 %; Mean Corpuscular HGB Conc 34 gm/dL (32-36); Mean Corpuscular Hemoglobin 29 pg (26-34); Mean Corpuscular Volume 86 fL (80-100); RDW Coefficient of Variation % 12.6 % (11.5-15.5); Red Blood Count* 4.40 m/uL (4.00-5.20); White Blood Count* 14.42 K/uL (4.50-11.00)
[2025-03-04 18:50] LABS: Immature Granulocytes Abs Auto 0.00 K/uL (0.00-0.30); Lymphocytes Absolute Auto 2.20 K/uL (0.90-2.90); Slide Review Reflex No
[2025-03-05] VITALS (99 sets, daily range): BP systolic 92–159; BP diastolic 55–95; PULSE 67–137; RESP 16–20; TEMP 36.5–37.3; O2SAT 90–100
[2025-03-05] MEDS: BUPIVACAINE 0.25% PF 10 ML 10 ML ML EPIDURAL (04:00)
[2025-03-05] MEDS: ROPIVACAINE 0.2% 100 ml 100 ML 12 MG EPIDURAL ×2 (04:00→10:56)
[2025-03-05] MEDS: LACTATED RINGERS 1000 ML 1,000 ML 125 ML IV (04:18)
--- NOTE | 2025-03-05 04:19 | PM.ANBPRC ---
PFSH PFSH Surgical History [place] teeth removed ?K08.409 - Partial loss of teeth, unspecified cause, unspecified class (ICD-10) Family History Father Myocardial infarction Maternal Grandmother Colon cancer Stroke Social History Narrative: SOCIAL??? 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 Partner: , Curtis?? Lives with: Together Pets: 2 dogs Abuse: Unable to assess, present Special Diet: Denies Ok with a blood transfusion: yes? Culture or anabaptist beliefs: denies ?? RISK FACTORS??? Exercise Times/wk: 1-2 times per week, walking Hx of Depression and/or Anxiety/other mood disorder: Anxiety, managed without medication, states no concerns at this time?? Seat Belt Use: Routinely? Smoking: Denies Alcohol/day: Denies while ?? Caffeine: None??? Drug Use: Denies? Chicken Pox: Yes as a child MRSA: Denies??? What is your current living situation?: I presently have a place to live Problems where you live: no known problems In the past 12 months, utilities in danger of being shut off: no In past 12 months, lack of transportation kept you from medical appts, meetings, work, or getting things needed for daily living: no In the past 12 mos, have been you worried that your food would run out before you had money to buy more?: never true In the past 12 mos, the food you bought just didn't last and you didn't have money to buy more?: never true Smoking Status: Never smoker Do you use any of these nicotine containing products: None How often do you have a drink containing alcohol: monthly or less AUDIT-C Alcohol total score: 1 How often does anyone, including family, friends and others, physically hurt you: never How often does anyone, including family, friends and others, insult or talk down to you: never How often does anyone, including family, friends and others, threaten you with harm: never How often does anyone, including family, friends and others, scream or curse at you: never Meds Home Medications and Allergies Home Medications ?Medication ?Instructions ?Recorded ?Confirmed ?Type docosahexaenoic acid 200 mg 200 mg PO DAILY 08/04/24 03/04/25 History capsule ( DHA) aspirin 81 mg tablet,delayed 81 mg PO QDAY 09/01/24 03/04/25 History release omega-3 fatty acids 1,000 mg 1,000 mg PO QDAY 10/25/24 03/04/25 History capsule breast pump #1 ea 01/17/25 03/04/25 Rx Held on 03/04/25. Instructions: inpatient Allergies Allergy/AdvReac Type Severity Reaction Status Date / Time No Known Drug Allergies Allergy Verified 03/02/25 11:16 Results Labs Labs: Laboratory Results - last 24 hr 03/04/25 18:38 WBC 14.42 H RBC 4.40 Hgb 12.8 Hct 37.8 MCV 86 MCH 29 MCHC 34 RDW Coeff of Demario 12.6 Plt Count 288 Neut % (Auto) 79.9 H Lymph % (Auto) 15.4 L Schleicher % (Auto) 3.7 Eos % (Auto) 0.5 Baso % (Auto) 0.2 Neut # (Auto) 11.50 H Lymph # (Auto) 2.20 Schleicher # (Auto) 0.50 Eos # (Auto) 0.10 Baso # (Auto) 0.00 Abs Immat Gran (auto) 0.00 Imm/Tot Granulo (auto) 0.3 Blood Type O Positive Antibody Screen NEGATIVE Vital Signs Vital Signs: Last Vital Signs Temp 97.7 F 03/05/25 03:09 Pulse 74 03/05/25 04:17 Resp 16 03/04/25 16:18 BP 117/60 03/05/25 04:17 Pulse Ox 100 03/05/25 04:15 Weight: 98.3 kg Height: 167.64 cm Anesthesia Procedures Epidural Insertion Patient Location: OB Start Time: 03:45 Stop Time: 04:45 Start Date: 03/05/25 Stop Date: 03/05/25 Reason for Block: procedure for pain Patient Position: sitting Performed By: Ko Rain Preanesthetic Checklist: IV checked, risks and benefits discussed, monitors and equipment checked, pre-op evaluation, timeout performed and anesthesia consent Prep: chlorhexidine gluconate Monitoring: blood pressure monitoring, continuous pulse oximetry and heart rate Approach: midline Vertebral Space: lumbar (1-5) Epidural Technique: JIMMY saline Needle Type: Tuohy needle Injection Technique: continuous catheter Needle gauge: 17 Needle Length (cm): 10 cm Needle Insertion Depth (cm): 7 Catheter Gauge: 19 Catheter Type: multi-orifice Catheter at skin depth (cm): 13 Test Dose Result: negative and lidocaine 1.5% with epinephrine 1 to 200,000
[2025-03-05] MEDS: OXYTOCIN 30 unit/500 ML in NS 30 UNIT/500 ML BAG IVPB (07:49)
--- NOTE | 2025-03-05 08:29 | PM.OBPNL ---
Subjective Date Seen: 03/05/25 Narrative: ?Jessee is coping with labor pain/contractions. ?Curtis is with her for support. ?She is using an epidural for comfort and pain management.?She is resting comfortably this morning on her left side. She has made change since her last cervical exam and continues to contract. Reviewed risks and benefits of starting IV Pitocin for augmentation this morning and she is agreeable. Objective Exam: VSS, afebrile General Appearance:? Calm, cooperative. ?No acute distress. ? Psychiatric Exam: Alert and oriented, appropriate affect Abdomen: Gravid Ctx: ?Q 2-4 min apart. ? ?Moderate ? FHTs: ?Baseline: 135. ? ? Variability: moderate. ?Accels: +. ? ?Decels: ?variables. SVE: /-1 Membranes: ?SROM clear at 0310 Vital Signs: Last Vital Signs Temp 98.4 F 03/05/25 07:22 Pulse 71 03/05/25 08:21 Resp 16 03/04/25 16:18 BP 112/63 03/05/25 08:21 Pulse Ox 90 03/05/25 05:40 Assessment Heart Rate Baseline: 135 Monitor Accelerations: Present Monitor Decelerations: None Plan Plan: Assessment:?? at 39.1 weeks gestation?? GBS negative Patient is coping well with challenges of labor.?? Labor type: Induced, Early labor? Category 2 FHR pattern.? complicated by: CHTN, AMA Labor complicated by: none Plan:?? Start IV Pitocin per protocol Continue with routine intrapartum cares as ordered.?? Patient encouraged to move and change positions to promote physiologic labor and .?? Epidural infusing per anethesia Anticipate progress to NVD. ?
[2025-03-05] MEDS: LACTATED RINGERS 1000 ML 1,000 ML IV (10:03)
--- NOTE | 2025-03-05 11:53 | PM.OBPNL ---
Subjective Date Seen: 03/05/25 Narrative: ?Jessee is coping well with labor pain/contractions. ?Curtis is with her for support. ?She is using an epidural for comfort and pain management.?Denies any pelvic pressure at this time. IV Pitocin was discontinued for FHR variable decelerations. She continues to contract without Pitocin at this time. Encouraged to change position every 30-60 minutes in labor with the help of RN. Objective Exam: VSS, afebrile General Appearance:? Calm, cooperative. ?No acute distress. ? Psychiatric Exam: Alert and oriented, appropriate affect Abdomen: Gravid Ctx: ?Q 1-3 min apart. ? ?Moderate ? FHTs: ?Baseline:145 . ? ? Variability: moderate. ?Accels: +. ? ?Decels: ?variable and late. SVE: deferred Membranes: ?SROM at 0310 clear Vital Signs: Last Vital Signs Temp 99.2 F 03/05/25 10:59 Pulse 93 03/05/25 11:50 Resp 16 03/04/25 16:18 BP 117/66 03/05/25 11:50 Pulse Ox 90 03/05/25 05:40 Assessment Heart Rate Baseline: 135 Monitor Accelerations: Present Monitor Decelerations: None Plan Plan: Assessment:?? at 39.1 weeks gestation?? GBS neg Patient is coping well with challenges of labor.?? Labor type: Induced, Early labor? Category 2 FHR pattern.? complicated by: CHTN, AMA Labor complicated by: none? Plan:?? Continue with routine intrapartum cares as ordered.?? Patient encouraged to move and change positions to promote physiologic labor and .?? Epidural infusing per anesthesia Consider restarting IV Pitocin if labor stalls or not progressing Anticipate progress to NVD. ?
--- NOTE | 2025-03-05 15:12 | PM.OBPNL ---
Subjective Date Seen: 03/05/25 Narrative: ?Jessee is coping well with labor pain/contractions. ?Curtis is with her for support. ?She is using an epidural for comfort and pain management.?She reports she is comfortable with epidural although her right side was starting to be painful, she was turned to her right side and encouraged to use a bolus. Los done and she is now complete, -1 Objective Exam: VSS, afebrile General Appearance:? Calm, cooperative. ?No acute distress. ? Psychiatric Exam: Alert and oriented, appropriate affect Abdomen: Gravid Ctx: ?Q 2-3 min apart. ? ? ?Strong FHTs: ?Baseline: 150. ? ? Variability: moderate. ?Accels: =. ? ?Decels: ?variable. SVE: Membranes: SROM at 0310 ? Vital Signs: Last Vital Signs Temp 97.9 F 03/05/25 14:12 Pulse 98 03/05/25 14:36 Resp 16 03/04/25 16:18 BP 127/76 03/05/25 14:36 Pulse Ox 90 03/05/25 05:40 Assessment Heart Rate Baseline: 135 Monitor Accelerations: Present Monitor Decelerations: None Plan Plan: Assessment:?? at 39.1 weeks gestation?? GBS negative Patient is coping well with challenges of labor.?? Labor type: Induced, Active labor? Category 2 FHR pattern.? complicated by: AMA, Chronic HTN Labor complicated by: none? Plan:?? Continue with routine intrapartum cares as ordered.?? Patient encouraged to move and change positions to promote physiologic labor and .?? Epidural per anesthesia Anticipate progress to NVD. ?
[2025-03-05] MEDS: LIDOCAINE 1 % PF 30 ML INJECTION (16:52)
--- NOTE | 2025-03-05 17:41 | W.PM.OBVAGDE ---
OB Procedure Vag Delivery Mother Details Mother Details: Jessee is a 34 year-old, 1, Para 0, admitted on 03/04/25 at 39.0 weeks gestation for induction of labor due to chronic hypertension. : 1 Para: 1 Weeks Gestation: 39.1 Admission Date: 03/04/25 Additional Details Amniotic Membrane Status: SROM Amniotic Membrane Rupture Date: 03/05/25 Amniotic Membrane Rupture Time: 02:30 Amniotic Membrane Fluid Description: Clear and Meconium Stained Analgesia/Anesthesia Type: Epidural Waterbirth: No Pitcoin: Yes Intrapartal Events: Labor Induction Induction Method: per misoprostol protocol and per pitocin protocol Labor Onset: 07:37 Complete: 15:05 Pushin:22 Heart: heart tones during second stage were continuously monitored, Category II with variables which then progressed to late decelerations. Pt was pushing effectively and IV Pitocin was discontinued with late decelerations noted. Delivery Details Delivery Date: 03/05/25 Delivery Time: 16:35 Route of delivery: Infant Gender: Female Infant Viability: Alive; Heart Rate Present Position at Delivery: OA Delivery Details: 34?y.o?at 39.1 weeks.? Jessee was admitted for induction of labor due to chronic hypertension and advanced maternal age. She was given 4 doses of Cytotec and then had SROM of clear fluid at 0230. She then requested an epidural and was comfortable throughout the rest of her labor. Briefly started on IV Pitocin this morning which was discontinued due to concerns of deeper variables with contractions then a few hours later this was again restarted and was titrated up to 3mu/hr. Pitocin discontinued during pushing due to recurrent late decelerations. ?Amniotic fluid remained clear throughout although light meconium staining was noted at time of delivery. ? She became complete at 1505.??She pushed in right tilt positions effectively.? Spontaneous vaginal delivery at 1635 of?a viable? female infant.??Delivered in vertex OA position, there was a loose nuchal cord which was reduced once the head delivered and before the body was delivered. .??Shoulders delivered easily.? Spontaneous cry noted.?? placed on maternal abdomen.??Cord?was clamped and cut after a 5+ minute delay.??Nose and mouth were bulb suctioned.? Shoulder dystocia: no? Nuchal cord: yes?times one? Meconium stained?fluid: yes noted after delivery? Water : no? ? ? 9 at 1 minute and 9 at 5 minutes.? Weight is pending. ? Placenta delivered spontaneously and?complete?at 1641 with a?3 vessel?cord.?? Bleeding controlled with fundal massage and?pitocin?for AMTSL.? ? Lacerations:? 2nd degree, repaired with 3-0?vicryl after infiltration of the area with 1% lidocaine.??bilateral periurethral lacerations, not bleeding, not repaired. A figure 8 was placed in two areas due to bleeding from probable blood vessel. Bleeding was then controlled with the 2 stitches and holding pressure. The majority of the bleeding was from this area ? Bleeding?post delivery?was: minimal. ?The fundus was firm to palpation.? Blood loss: 550?mL.? Blood loss measurement type: QBL? ? ? Sponge,?lap?and needles counts are correct.? Mother and infant were stable after delivery.? 1 Minute Interval Total Score: 9 5 Minute Interval Total Score: 9 Additional Details Shoulder Dystocia: No Placenta Delivery Time: 16:41 Placental Delivery Description: Spontaneous Delivery repair: Vicryl Procedure Done: Global Blood Loss: 550 Laceration: Perineal - 2nd Degree Blood Loss Measurement Type: QBL Bakri Used: No Sponge/Need Count Correct: Yes Cord Vessel Description: 3 Vessels, Nuchal Cord, Loose and Reduced Event Summary Status: Mother and infant were stable after delivery. Disposition: floor
[2025-03-05] MEDS: IBUPROFEN 600 MG TABLET PO (20:55)
[2025-03-06] VITALS (7 sets, daily range): BP systolic 103–127; BP diastolic 63–86; PULSE 71–91; RESP 16–17; TEMP 36.5–36.8; O2SAT 97–99
[2025-03-06] MEDS: IBUPROFEN 600 MG TABLET PO ×3 (05:28→20:12)
--- NOTE | 2025-03-06 07:32 | PM.OBPNVD1 ---
OB - PN:Subj Subjective Date Seen: 03/06/25 Narrative: Jsesee is a 34 y.o. G 1 P 1 who was admitted to L & D for IOL for Chronic HTN. ?She had a NVD that was uncomplicated. The patient feels well. ?The pain is well controlled with current medications. ?She has no new complaints. ?She is breast feeding and reports things are going well. the patient has done well.? Vitals have been stable.? She has remained afebrile.? Has a good appetite, is tolerating a general diet. ?She is voiding without difficulty.? She is passing gas and has not had a bowel movement.? She is ambulating and denies any dizziness.? Has small amount of rubra lochia. Problems: none OB - PN: Obj Exam Physical Exam: Vital signs: Temp Pulse Resp BP Pulse Ox O2 Del Method 97.7 F 87 16 127/86 98 Room Air 03/06/25 05:07 03/06/25 05:07 03/06/25 05:07 03/06/25 05:07 03/06/25 05:07 03/06/25 05:07 OB - PN: A/P Delivery Assessment and Plan (1) care and examination immediately after delivery: Status: Acute (2) Chronic hypertension affecting : Status: Acute (3) Lactating mother: Status: Acute Plan day: 1 Plan: routine care Comments: , may see if needed? Hgb 12.8. ? Chronic HTN. BP has been normotensive , will continue to monitor.? Anticipate discharge home tomorrow. Patient had requested to discharge later today after 24 hours but strongly encouraged her to stay with her diagnosis of CHTN for continued BP monitoring. She is agreeable at this time.
[2025-03-06] MEDS: ACETAMINOPHEN 500 MG TABLET 1000 MG PO ×2 (09:06→23:47)
[2025-03-06] MEDS: DOCUSATE SODIUM 100 MG CAPSULE PO (09:06)
--- NOTE | 2025-03-06 12:32 | PM.ANPOST ---
Post Anesthesia Note Post Anesthesia Note Patient seen: Inpatient Respiratory Status: adequate Cardiovascular Status: adequate Mental Status: baseline Pain: adequate Temp: baseline Anesthetic awareness: N/A Complications: none Follow care: none
[2025-03-07 04:34] VITALS: BP 136/76; PULSE 73; RESP 16; TEMP 36.3; O2SAT 98
--- NOTE | 2025-03-07 07:42 | P.DS_ITS ---
DS: Providers Provider Time Seen by Provider: 07:45 Date Seen: 03/07/25 Date of admission: 03/04/25 16:02 Primary care physician: Not a Local Provider Admitting Clinician: Jena Tyler CNM Attending Physician on discharge: Alana Villavicencio CNM Date of Discharge: 03/07/25 DS: Diagnosis Discharge Diagnosis (1) care and examination immediately after delivery: Status: Acute (2) Lactating mother: Status: Acute (3) Chronic hypertension: Status: Acute Exam Narrative: Exam Narrative: Constitutional: no apparent distress Respiratory: no labored breathing, lungs clear to auscultation Cardiovascular: regular heart rate and rhythm, blood pressure WNL at this time Abdomen: soft. Uterine fundus firm, midline and at umbilicus. Perineum: mild swelling, sutures intact, no discoloration Anus: hemerrhoids present, flesh color Extremities: +1 edema in bilateral lower extremities Mood: appropriate Const: Vital Signs, click to edit/add: Vital Signs - 24 hr 03/06/25 08:45 03/06/25 13:53 03/06/25 17:44 Temperature 98.0 F 98.0 F 98.1 F Pulse Rate [Blood Pressure Cuff] 71 82 78 Respiratory Rate 16 16 16 Blood Pressure [Le ft Arm] 103/63 104/66 110/71 Pulse Oximetry 98 97 97 Oxygen Delivery Me thod Room Air Room Air Room Air 03/06/25 20:02 03/06/25 23:29 03/07/25 04:34 Temperature 97.7 F 97.8 F 97.4 F L Pulse Rate [Blood Pressure Cuff] 82 91 73 Respiratory Rate 16 16 16 Blood Pressure [Le ft Arm] 122/74 122/76 136/76 Pulse Oximetry 97 99 98 Oxygen Delivery Me thod Room Air Room Air Room Air OB - DS: Summary Hospital Course Hospital Course: Jessee is a 34 y.o. G 1 P 1 who was admitted to [facility] for induction of labor for chronic hypertension.? She had a NVD that was uncomplicated. The patient feels well.? The pain is well controlled with current medications.?Requests cream for hemorrhoids. She is breast feeding and reports things are improving. Nipples are sore. RN assisting to maintain deep latch. Aware of resources including at [place] and [facility]. the patient has done well.?Elevated blood pressure in first few hours after that did not sustain.? She has remained afebrile.?No vision changes, severe headache, nausea or vomitting, or RUQ pain. She does have continued edema in feet. Has a good appetite, is tolerating a general diet.? She is voiding without difficulty.? She is passing gas and has not had a bowel movement.? She is ambulating and denies any dizziness.? Has scant amount of rubra lochia. DIANE Malone ?? Problems: elevated blood pressure, nursing? ?? plan:? Discharge home with baby.? , may see if needed?? Chronic hypertension- monitor blood pressure with home cuff twice daily. Report readings >140/90 Discharge home with BP cuff if does not already have one Follow up in 3-5 days? Call for signs/symptoms of preeclampsia Hydrocortisone cream ordered for hemorrhoids. Can also use OTC TUCKs cream. Colace stool softener up to twice daily for regular, easy bowel movements Follow up in 2 weeks and 6 weeks.? Julissa Angeles APRN, CNM, was present for visit and have reviewed and agree with documentation by the Certified Nurse Midwifery Student.? Peripartum Data Infant delivery method: Vaginal Laceration description: Perineal - 2nd Degree Episiotomy description: None complications: none [place] Gender: Female Discharge Plan: Home Status at Discharge Functional status at discharge: independent ambulation Overall status at discharge: patient is progressing back to baseline Time Spent with Patient Time attestation: Total time spent providing and/or coordinating discharge services: Time spent: Less than 30 minutes Discharge Plan Discharge Disposition: Home, Self-Care Date of Admission: 03/04/25 16:02 Attending Provider on Discharge: Alana Villavicencio Consulting Providers: Julio Saha Primary Care Provider: Provider,Not a Local Condition: Stable Anticipated Discharge Date/Time: 03/07/25 10:46 Discharge Medications: New docusate sodium 100 mg Capsule 100 mg PO DAILY Qty: 60 0RF ibuprofen 600 mg Tablet 600 mg PO Q6H PRNQty: 60 0RF hydrocortisone 1 % cream 1 applic topical BID-QID PRNQty: 28.4 2RF Continued DHA 200 mg capsule 200 mg PO DAILY omega-3 fatty acids 1,000 mg capsule 1,000 mg PO QDAY (DME) breast pump Device See Rx Instructions .ROUTE .MEDSUPPLY Qty: 1 0RF Rx Instructions: As directed Discontinued aspirin 81 mg tablet,delayed release (DR/EC) 81 mg PO QDAY Discharge Orders: Discharge Order (Routine); Ordered 03/07/25 Ordered By: Alana Villavicencio Patient Education: OB Over the Counter Medication Information, OB Vaginal/Breast Feeding Additional Instructions: Discharge instructions were reviewed with the patient including signs and symptoms of infection and home going medications Nothing vaginally for 6 weeks: no tampons or intercourse Do not drive while taking narcotic pain medication(s) Off Work or School for 6 weeks Symptoms to report to doctor: * Bleeding that saturates more than one pad per hour * Passing clots larger than the size of a golf ball * Pain not relieved by prescribed medication * Fever above 100.4 degrees Fahrenheit * A foul vaginal odor * Difficulty in emotions, mood, and functions * Thoughts of hurting yourself and/or * Painful, reddened area in your breast * Any drainage, redness, or tenderness in your IV/epidural site * Severe headache that doesn't improve after taking medications * Changes in vision, including temporary loss of vision, blurred vision, and/or light sensitivity * Upper abdominal pain (usually under ribs on the right side) * Decrease in urination or painful, frequent urinating * Chest pain * Shortness of breath * Tenderness or pain with redness and/swelling in the calf(s) of your leg [facility] for a BP check?in 3-5 days. Please call the clinic to schedule Call with BP greater than or equal to 140/90. Optional 2-week visit: discuss infant feeding concerns, review control options and screen for anxiety/depression. 6-week visit for an annual exam. consultation services are available to all mothers and babies for the first year after delivery.? To make an appointment, please call [phone]. Activity Level: Activity as Tolerated and No strenuous activity Discharge Diet: Regular Follow Up Appointments: [facility] [Provider Group] Forms: [employer] Info Instructions
[2025-03-07 09:12] VITALS: BP 114/76; PULSE 75; RESP 16; TEMP 36.6; O2SAT 98
[2025-03-07] MEDS: DOCUSATE SODIUM 100 MG CAPSULE PO (09:32)
[2025-03-07] MEDS: IBUPROFEN 600 MG TABLET PO (09:32)
== END 2025-03-07 14:10 | disposition home or self-care (01) | DRG 806 ==
PROVIDERS: Advanced Practice Midwife; Admitting Provider Advanced Practice Midwife; Visit Provider Advanced Practice Midwife
DX: O10.92 Unspecified pre-existing hypertension complicating childbirth (principal); O87.2 Hemorrhoids in the puerperium; Z37.0 Single live birth; O70.1 Second degree perineal laceration during delivery; O77.0 Labor and delivery complicated by meconium in amniotic fluid; Z3A.39 39 weeks gestation of pregnancy
CPT/HCPCS: 01967; 36415; 59200; 85025; 86592; 86850; 86900; 86901; 88307; 94761; A9270; J0665; J2003; J2270; J2795; J7120

== ENCOUNTER 2025-03-12 09:30 | Outpatient (CLI) | payer OTHER, SELFPAY ==
--- NOTE | 2025-03-12 16:33 | W.PM.LAC.MC ---
Consult Note - Mom Date of Visit Date of visit: 03/12/25 Reason for consultation: Assistance Needed and Low Milk Supply Visit Code: Visit Patient's Information Phone number: [phone] : 1 Para: 1 Allergies No Known Drug Allergies Allergy (Verified 03/02/25 11:16) Mother's Medical History: Medical History (Updated 03/10/25 @ 00:01 by Background Daemon) Proteinuria affecting ?O12.10 - Gestational proteinuria, unspecified trimester (ICD-10) Chronic hypertension affecting ?O10.919 - Unspecified pre-existing hypertension complicating , unspecified trimester (ICD-10) Delivery Information Delivery type: Vaginal Gestational Age: 39+1 Gestational Weight For Age: AGA Weight: 3.33 kg Discharge Weight: 3.16 kg Baby's Information Baby's Age at Visit: 7 days Baby's Provider or Clinic: [facility] Jaundice: No Past Experience Past Experience: No Current Frequency of Day Feedings: every 3 hrs day an dnight Both Breasts: No (has been pumping and bottling) Pumping Pumping: Yes Quantity Pumped: 1 oz total ea feeding/pumping Supplementing EBM Supplement: Yes Formula Supplement: Yes (aking 70-75 ml/deeding) Baby Elimination Number of Wet Diapers a Day: ea feeding Number of BM a Day: 6+/day Breast/Nipple Condition Breast Information: Breasts are symmetrical with rounded lower quadrants, intramammary distance is less than 1.5 inches. No erythema. Nipples are supple, everted prior to feeding. Breast Shape: Round Engorgement: No Maternal Nipple Condition - Left: Common Nipple Maternal Nipple Condition - Right: Common Nipple Sore Nipples: No (healed) Baby Assessment Skin: Normal Tongue/frenulum: Normal/elastic Palate: Average Lips: Relaxed and Symmetrical Jaw Alignment: Symmetrical Mucosa: Switzer, moist Onsite Observation Pre-Feed weight: 3.272 kg Post-Feed weight: 3.284 kg Milk Transferred (mL): 14 Position: Cross cradle and Football Attachment/latch-on achieved: With difficulty Suck pattern: Suck burst and normal rest Swallow: Occasionally Behavior following feed: Alert, fussy Pre-Nursing Left Nipple: Within Normal Limits Pre-Nursing Right Nipple: Within Normal Limits Post-Nursing Left Nipple: Within Normal Limits Post-Nursing Right Nipple: Within Normal Limits Assessments/Interventions Assessments/Interventions: Suzanne latched to mom's RIGHT breast, latched well in the football hold and stayed nursing for 10 minutes. Transferred 4 ml of milk Nataliee then latched to mom's LEFT breast, latched well, slightly more swallowing noted and nursed for another 10 minutes. Transferred 10 ml of milk. Total milk transferred: 14 ml Nataliee needed gentle support to stay latched. Discussed normals of ; milk coming in, regulation of supply, use of pump to relieve fullness if needed, but not to pump every feeding if not needed to prevent over supply. Of note, mom just started feeling her milk come in yesterday, day 6 . Discussed feeding at the breast for about 10 min ea feeding, and then pumping as able for increased stimulation to see if milk will come in more. Discussed galactogogues as an option - mom prefers to wait ( and I agree) since milk just starting to come around. She will work on increasing her fluid intake to see if this helps and work with getting baby to the breast more than just pumping now that her nipples are healed. Discussed adding in bottles for supplemental feedings vs syringe feeding to help learn wider latch to coincide with getting milk Follow up by phone as needed; follow up in 2 weeks for repeat visit if feels milk is coming in more and would like to do another weighted feed; sooner with questions/concerns. Education provided: Early feeding cues to maximize timing of latching, Asymmetric latch technique for wide/deep latch to increase milk, Transfer for baby and increase comfort for mom, Supply/demand nature of milk supply, Need for frequent stimulation/milk removal, Alternative feeding methods (SNS, cup, finger feeding, bottling) (paced bottle feeding) and Pumping for milk management Follow-Up Suggested follow up: Appointment as needed Time Spent Time spent with patient (min): 75 Meds Home Medications and Allergies Home Medications ?Medication ?Instructions ?Recorded ?Confirmed ?Type docosahexaenoic acid 200 mg 200 mg PO DAILY 08/04/24 03/04/25 History capsule ( DHA) omega-3 fatty acids 1,000 mg 1,000 mg PO QDAY 10/25/24 03/04/25 History capsule breast pump #1 ea 01/17/25 03/04/25 Rx docusate sodium 100 mg capsule 100 mg PO DAILY #60 caps 03/07/25 Rx hydrocortisone 1 % topical cream 1 applic topical BID-QID PRN #28.4 03/07/25 Rx grams ibuprofen 600 mg tablet 600 mg PO Q6H PRN #60 tabs 03/07/25 Rx Allergies Allergy/AdvReac Type Severity Reaction Status Date / Time No Known Drug Allergies Allergy Verified 03/02/25 11:16
== END 2025-03-12 09:31 | disposition home or self-care (01) ==
LOC: OB LAC 09:32
PROVIDERS: Visit Provider Midwife
DX: Z39.1 Encounter for care and examination of lactating mother (principal)
CPT/HCPCS: G0463